=== PATIENT | female | born 1975 | race Caucasian/White ===

== ENCOUNTER → 2017-03-04 | Outpatient (CLI) | payer BC ==
[~2017-03-04] MED LIST: PREN1TAB39
--- NOTE | 2017-03-04 17:29 | Diagnostic Imaging Report ---
INDICATION: Menorrhagia. EXAM: Transabdominal and endovaginal pelvic sonogram. FINDINGS: The uterus measures 8.0 x 4.2 x 4.2 cm. The endometrium measures 8 mm in thickness. The myometrium and endometrium appear normal. There are follicular cysts on the left ovary. The largest is 17 mm in diameter and has internal debris which may be due to a hemorrhagic cyst. The right ovary is obscured by bowel gas. IMPRESSION: Small hemorrhagic cyst, left ovary. Dictated by: Dictated on workstation # [id number]
== END ==
LOC: RAD 16:49
PROVIDERS: ATTEND Nurse Practitioner
DX: N83.202 Unspecified ovarian cyst, left side (principal); N92.0 Excessive and frequent menstruation with regular cycle
CPT/HCPCS: 76830; 76856

== ENCOUNTER 2017-06-06 10:33 | Emergency (ER) | payer BC ==
[~2017-06-06] VITALS: Ht 162.6 cm; Wt 66.2 kg
[~2017-06-06 10:33] MED LIST changes: +DOCU100C37 PO; +HYDR-3816 PO; +IBUP-1773 PO; +SIME80TA16 PO
[2017-06-06] MEDS ORDERED: ONDANSETRON 4 MG/2 ML (SDV) Z0FRAN IVP ONE ×2 (12:00→13:15)
[2017-06-06] MEDS ORDERED: NS IV PRN (12:00)
[2017-06-06] MEDS ORDERED: KETOROLAC 30 MG/ML VIAL IVP STA (12:00)
--- NOTE | 2017-06-06 12:02 | ED GU-Female ---
General Chief Complaint: Fever-Adult/Adol Stated Complaint: FEVER,RASH Nursing Triage Note: pt reports she had hyst by dr bianchi on the 05/27. fever starting 06/02. started on keflex by jose nunez on 06/03. fever persists et rash developing on face et left abd. Nursing Sepsis Screen: No Definite Risk Source: patient, spouse Exam Limitations: no limitations History of Present Illness Time seen by provider: 11:45 Allergies and Home Medications Allergies Coded Allergies: Influenza Virus Vaccines (Verified Allergy, Mild, HIVES, 05/21/17) divalproex sodium (Verified Allergy, Mild, HIVES, 05/21/17) Home Medications Docusate Sodium 100 Mg Capsule, 100 MG PO BID PRN for CONSTIPATION-1ST LINE, #60 Prescribed by: ZAIRA BIANCHI on 05/27/17 1725 Hydrocodone/Acetaminophen 1 Each Tablet, 1-2 EA PO Q6H PRN for PAIN-MODERATE TO SEVERE, #30 Prescribed by: ZAIRA BIANCHI on 05/27/17 1725 Ibuprofen 600 Mg Tablet, 600 MG PO Q6H PRN for PAIN-MILD, #60 Prescribed by: ZAIRA BIANCHI on 05/27/17 1725 Simethicone 80 Mg Tab.chew, 40 MG PO TID PRN for INDIGESTION, #60 Prescribed by: ZAIRA BIANCHI on 05/27/17 1725 Past Laicuzp-Fhtupk-Ggeszq Hx Patient Social History Recent Foreign Travel: No Contact w/Someone Who Travel: No Recent Infectious Disease Expo: No Recent Hopitalizations: No Immunizations Up To Date Tetanus Booster (TDap): Unknown PED Vaccines UTD: No Seasonal Allergies Seasonal Allergies: Yes Respiratory Respiratory Disorders: Asthma Neurological Neurological Disorders: Headaches /Migraines, Seizure Disorder Reproductive System Hx Reproductive Disorders: Yes (MENOMETRORRHAGIA, L ADENEXAL CYST) Sexually Transmitted Disease: No HIV/AIDS: No Female Reproductive Disorders: Menstrual Problems, Ovarian Cyst HEENT Loss of Vision: Bilateral Hearing Impairment: Denies Blood Transfusions Adverse Reaction to a Blood Tr: No Physical Exam Vital Signs Vital Sign - Last 12Hours 06/06/17 10:55 Temp 99.1 Pulse 88 Resp 18 B/P (MAP) 127/69 Capillary Refill : Less Than 3 Seconds Focused Exam Evaluation Lactate Level Laboratory Tests 06/06/17 11:54: Lactic Acid Level 1.11 Lactic Acid Level Laboratory Tests Test 06/06/17 11:54 Lactic Acid Level 1.11 MMOL/L (0.50-2.00) Progress/Results/Core Measures Suspected Sepsis Recent Fever Within 48 Hours: Yes Infection Criteria Present: Suspected New Infection New/Unexplained Altered Menta: No Sepsis Screen: No Definite Risk Sepsis Diagnosis: SIRS Temperature:99.1 Pulse: 88 Respiratory Rate: 18 Laboratory Tests 06/06/17 11:54: White Blood Count 11.2H Blood Pressure 127 /69 Mean: 88 Laboratory Tests 06/06/17 11:54: Lactic Acid Level 1.11 Laboratory Tests 06/06/17 11:54: Creatinine 0.78, INR Comment 1.0, Platelet Count 346, Total Bilirubin 0.4 Results/Orders Lab Results Laboratory Tests Test 06/06/17 11:54 06/06/17 12:00 Range/Units White Blood Count 11.2 H 4.3-11.0 10^3/uL Red Blood Count 4.81 4.35-5.85 10^6/uL Hemoglobin 13.9 11.5-16.0 G/DL Hematocrit 41 35-52 % Mean Corpuscular Volume 86 80-99 FL Mean Corpuscular Hemoglobin 29 25-34 PG Mean Corpuscular Hemoglobin Concent 34 32-36 G/DL Red Cell Distribution Width 11.8 10.0-14.5 % Platelet Count 346 130-400 10^3/uL Mean Platelet Volume 10.3 7.4-10.4 FL Neutrophils (%) (Auto) 67 42-75 % Lymphocytes (%) (Auto) 21 12-44 % Monocytes (%) (Auto) 7 0-12 % Eosinophils (%) (Auto) 4 0-10 % Basophils (%) (Auto) 1 0-10 % Neutrophils # (Auto) 7.6 1.8-7.8 X 10^3 Lymphocytes # (Auto) 2.3 1.0-4.0 X 10^3 Monocytes # (Auto) 0.8 0.0-1.0 X 10^3 Eosinophils # (Auto) 0.5 H 0.0-0.3 10^3/uL Basophils # (Auto) 0.1 0.0-0.1 10^3/uL Prothrombin Time 13.0 12.2-14.7 SEC INR Comment 1.0 0.8-1.4 Activated Partial Thromboplast Time 28 24-35 SEC Sodium Level 139 135-145 MMOL/L Potassium Level 4.4 3.6-5.0 MMOL/L Chloride Level 107 98-107 MMOL/L Carbon Dioxide Level 24 21-32 MMOL/L Anion Gap 8 5-14 MMOL/L Blood Urea Nitrogen 11 7-18 MG/DL Creatinine 0.78 0.60-1.30 MG/DL Estimat Glomerular Filtration Rate > 60 BUN/Creatinine Ratio 14 Glucose Level 83 70-105 MG/DL Lactic Acid Level 1.11 0.50-2.00 MMOL/L Calcium Level 9.3 8.5-10.1 MG/DL Total Bilirubin 0.4 0.1-1.0 MG/DL Aspartate Amino Transf (AST/SGOT) 26 5-34 U/L Alanine Aminotransferase (ALT/SGPT) 64 H 0-55 U/L Alkaline Phosphatase 67 40-136 U/L Total Protein 7.5 6.4-8.2 GM/DL Albumin 4.1 3.2-4.5 GM/DL Urine Color YELLOW Urine Clarity SLIGHTLY CLOUDY Urine pH 6.5 5-9 Urine Specific Marshall 1.010 L 1.016-1.022 Urine Protein NEGATIVE NEGATIVE Urine Glucose (UA) NEGATIVE NEGATIVE Urine Ketones NEGATIVE NEGATIVE Urine Nitrite NEGATIVE NEGATIVE Urine Bilirubin NEGATIVE NEGATIVE Urine Urobilinogen NORMAL NORMAL MG/DL Urine Leukocyte Esterase 2+ H NEGATIVE Urine RBC (Auto) 2+ H NEGATIVE Urine RBC RARE /HPF Urine WBC 2-5 /HPF Urine Squamous Epithelial Cells TNTC H /HPF Urine Renal Epithelial Cells NONE /HPF Urine Crystals NONE /LPF Urine Bacteria FEW H /HPF Urine Casts NONE /LPF Urine Mucus NEGATIVE /LPF Urine Culture Indicated NO My Orders Orders - JAMA SALOMON PA Cbc With Automated Diff (06/06/17 11:46) Comprehensive Metabolic Panel (06/06/17 11:46) Lactic Acid Analyzer (06/06/17 11:46) Blood Culture (06/06/17 11:46) Ua Culture If Indicated (06/06/17 11:46) Protime With Inr (06/06/17 11:46) Partial Thromboplastin Time (06/06/17 11:46) Chest 1 View, Ap/Pa Only (06/06/17 11:46) Saline Lock/Iv-Start (06/06/17 11:46) Vital Signs Adult Sepsis Patie Q1H (06/06/17 11:46) Remove Rings In Anticipation O (06/06/17 11:46) Ct Abdomen/Pelvis W (06/06/17 12:00) Ondansetron Injection (Zofran Injectio (06/06/17 12:00) Ketorolac Injection (Toradol Injection) (06/06/17 12:00) Ns Iv 1000 Ml (Sodium Chloride 0.9%) (06/06/17 12:00) Ns Iv 1000 Ml (Sodium Chloride 0.9%) (06/06/17 12:05) Iohexol Injection (Omnipaque 350 Mg/Ml 1 (06/06/17 12:15) Sodium Chloride Flush (Catheter Flush Sy (06/06/17 12:15) Ns (Ivpb) (Sodium Chloride 0.9% Ivpb Bag (06/06/17 12:15) Pharmacy Communication (Pharmacy Communi (06/06/17 12:07) Zofran Iv (06/06/17 13:15) Pepcid 20 Mg Iv (06/06/17 13:10) Solu-Medrol 125 Mg Iv (06/06/17 13:10) Medications Given in ED Current Medications Medications Dose Ordered Sig/Marilu Route Start Time Stop Time Status Last Admin Dose Admin Iohexol 100 ml ONCE ONCE IV 06/06/17 12:15 06/06/17 12:16 DC 06/06/17 12:28 100 ML Ondansetron HCl 4 mg ONCE ONCE IVP 06/06/17 12:00 06/06/17 12:02 DC 06/06/17 12:08 4 MG Sodium Chloride 10 ml NEEDED PRN IV 06/06/17 12:15 06/06/17 12:29 10 ML Sodium Chloride 100 ml ONCE ONCE IV 06/06/17 12:15 06/06/17 12:16 DC 06/06/17 12:28 80 ML Sodium Chloride 1,000 ml @ 0 mls/hr Q0M ONCE IV 06/06/17 12:05 06/06/17 12:07 DC 06/06/17 12:13 1,000 MLS/HR Vital Signs/I&O Vital Sign - Last 12Hours 06/06/17 10:55 Temp 99.1 Pulse 88 Resp 18 B/P (MAP) 127/69 Capillary Refill : Less Than 3 Seconds Blood Pressure Mean: 88 Departure Communication (Admissions) Progress Notes [address] milian Impression Impression: Primary Impression: Nausea & vomiting Additional Impressions: S/P hysterectomy Ovarian cyst Disposition: 01 HOME, SELF-CARE Departure-Patient Inst. Decision time for Depature: 13:13 Referrals: SAVANNAH MENARD MD (PCP) Primary Care Physician MART VELAZQUEZ (Family) Primary Care Physician ZAIRA BIANCHI DO Add. Discharge Instructions: All discharge instructions reviewed with patient and/or family. Voiced understanding. Medications as instructed. Continue usual home medications. Ibuprofen 800 mg by mouth every 8 hours as needed for pain or fever. Tylenol extra strength [id number] as directed for pain or fever. Push fluids. Follow-up with Dr. Bianchi on Friday as previously scheduled. Return to the emergency department for worsened symptoms or any other concerns. Scripts Prednisone (Prednisone) 20 Mg Tab 40 MG PO DAILY, #10 TAB 0 Refills Prov: JAMA SALOMON 06/06/17 Famotidine (Pepcid) 20 Mg Tablet 20 MG PO BID, #14 TAB 0 Refills Prov: JAMA SALOMON 06/06/17 Ondansetron (Ondansetron Odt) 8 Mg Tab.rapdis 8 MG PO Q6H Y for NAUSEA/VOMITING-1ST LINE, #10 TAB 0 Refills Prov: JAMA SALOMON 06/06/17 JAMA SALOMON Jun 06, 2017 12:02
[2017-06-06] MEDS ORDERED: NS IV 1000 ML 1,000 ML IV ONE (12:05)
[2017-06-06 12:12] LABS: BASOPHILS # (AUTO) 0.1 10^3/uL (0.0-0.1); BASOPHILS % (AUTO) 1 % (0-10); EOSINOPHILS # (AUTO) 0.5 10^3/uL (0.0-0.3); EOSINOPHILS % (AUTO) 4 % (0-10); LYMPHOCYTES # (AUTO) 2.3 X 10^3 (1.0-4.0); LYMPHOCYTES % (AUTO) 21 % (12-44); MEAN CORPUSCULAR HEMOGLOBIN 29 PG (25-34); MEAN CORPUSCULAR HGB CONC 34 G/DL (32-36); MEAN CORPUSCULAR VOLUME 86 FL (80-99); MEAN PLATELET VOLUME 10.3 FL (7.4-10.4); MONOCYTES # (AUTO) 0.8 X 10^3 (0.0-1.0); MONOCYTES % (AUTO) 7 % (0-12); NEUTROPHILS # (AUTO) 7.6 X 10^3 (1.8-7.8); NEUTROPHILS % (AUTO) 67 % (42-75); PLATELET COUNT 346 10^3/uL (130-400); RED BLOOD COUNT 4.81 10^6/uL (4.35-5.85); RED CELL DISTRIBUTION WIDTH 11.8 % (10.0-14.5); WHITE BLOOD COUNT 11.2 10^3/uL (4.3-11.0)
[2017-06-06] MEDS ORDERED: CATHETER FLUSH 10 ML SYR IV PRN (12:15)
[2017-06-06] MEDS ORDERED: IOHEXOL 350 MG/ML 100 ML (OMNIPAQUE 350) VIAL IV ONE (12:15)
[2017-06-06] MEDS ORDERED: NS 100 ML (IVPB) BAG IV ONE (12:15)
--- NOTE | 2017-06-06 12:15 | Diagnostic Imaging Report ---
INDICATION: Post hysterectomy, fever and rash. Portable chest 1155 hours. FINDINGS: Heart size and pulmonary vascularity are normal. Lungs are clear. There are no effusions or pneumothoraces. IMPRESSION: Negative chest. Dictated by: Dictated on workstation # [id number]
[2017-06-06 12:36] LABS: ALANINE AMINOTRANSFERASE 64 U/L (0-55); ALBUMIN 4.1 GM/DL (3.2-4.5); ANION GAP 8 MMOL/L (5-14); ASPARTATE AMINO TRANSFERASE 26 U/L (5-34); BILIRUBIN,TOTAL 0.4 MG/DL (0.1-1.0); BLOOD UREA NITROGEN 11 MG/DL (7-18); BUN/CREATININE RATIO 14; CALCIUM 9.3 MG/DL (8.5-10.1); CARBON DIOXIDE 24 MMOL/L (21-32); CHLORIDE 107 MMOL/L (98-107); CREATININE SERUM 0.78 MG/DL (0.60-1.30); GFR ESTIMATED > 60; GLUCOSE 83 MG/DL (70-105); POTASSIUM 4.4 MMOL/L (3.6-5.0); SODIUM 139 MMOL/L (135-145); TOTAL PROTEIN 7.5 GM/DL (6.4-8.2)
--- NOTE | 2017-06-06 12:41 | Diagnostic Imaging Report ---
PROCEDURE: CT abdomen and pelvis with contrast. TECHNIQUE: Multiple contiguous axial images were obtained through the abdomen and pelvis after administration of intravenous contrast. INDICATION: Postoperative fever and pelvic pain. FINDINGS: Lung bases are clear. Liver appears normal. Gallbladder is present. Pancreas is normal. Spleen is not enlarged. Adrenals are normal. Kidneys appear normal. The uterus is surgically absent. There are 2 cysts on the left ovary. Each of these measures 2 cm in diameter. The urinary bladder appears normal. There is a trace amount of free fluid in the cul-de-sac. There is a moderate amount of stool in the colon. The appendix is normal. IMPRESSION: Postsurgical changes in the abdomen. There is no intraperitoneal free air. There is a trace amount of intraperitoneal free fluid in the cul-de-sac. There are 2 cysts on the left ovary. There is no acute abnormality seen. Dictated by: Dictated on workstation # [id number]
[2017-06-06 12:43] LABS: BILIRUBIN,URINE NEGATIVE (NEGATIVE); KETONES,URINE NEGATIVE (NEGATIVE); LEUKOCYTE ESTERASE ,URINE 2+ (NEGATIVE); NITRITE,URINE NEGATIVE (NEGATIVE); PH,URINE 6.5 (5-9); PROTEIN,URINE NEGATIVE (NEGATIVE); UROBILINOGEN,URINE NORMAL (NORMAL)
[2017-06-06 12:44] LABS: SQUAMOUS EPITHELIAL CELL,UR TNTC /HPF
[2017-06-06] MEDS ORDERED: methylPREDNISolone 125 MG (Solu-MEDROL) VIAL IV STA (13:10)
[2017-06-06] MEDS ORDERED: FAMOTIDINE 20MG/2ML IV (PEPCID) IV STA (13:10)
[2017-06-06] MEDS ORDERED: FAMO-119 PO (13:14)
[2017-06-06] MEDS ORDERED: ONDA8TAB13 PO (13:14)
[2017-06-06] MEDS ORDERED: PRD20T PO (13:14)
[2017-06-06 14:13] VITALS: BP 127/69
== END 2017-06-06 14:13 | disposition home or self-care (01) ==
LOC: EDUNIT# 10:33 → ER 10:34
DX: R11.2 Nausea with vomiting, unspecified (principal); N83.202 Unspecified ovarian cyst, left side; G43.909 Migraine, unspecified, not intractable, without status migrainosus; G40.909 Epilepsy, unspecified, not intractable, without status epilepticus; J45.909 Unspecified asthma, uncomplicated; Z90.710 Acquired absence of both cervix and uterus
CPT/HCPCS: 36415; 71010; 74177; 80053; 81000; 83605; 85025; 85610; 85730; 87040

== ENCOUNTER → 2017-06-16 | Outpatient (CLI) | payer BC ==
[~2017-06-16] MED LIST changes: +FAMO-119 PO; +ONDA8TAB13 PO; +PRD20T PO
[2017-06-16 09:15] LABS: BASOPHILS # (AUTO) 0.1 10^3/uL (0.0-0.1); BASOPHILS % (AUTO) 1 % (0-10); EOSINOPHILS # (AUTO) 0.6 10^3/uL (0.0-0.3); EOSINOPHILS % (AUTO) 7 % (0-10); LYMPHOCYTES # (AUTO) 2.4 X 10^3 (1.0-4.0); LYMPHOCYTES % (AUTO) 31 % (12-44); MEAN CORPUSCULAR HEMOGLOBIN 29 PG (25-34); MEAN CORPUSCULAR HGB CONC 34 G/DL (32-36); MEAN CORPUSCULAR VOLUME 87 FL (80-99); MEAN PLATELET VOLUME 9.9 FL (7.4-10.4); MONOCYTES # (AUTO) 0.5 X 10^3 (0.0-1.0); MONOCYTES % (AUTO) 7 % (0-12); NEUTROPHILS # (AUTO) 4.3 X 10^3 (1.8-7.8); NEUTROPHILS % (AUTO) 55 % (42-75); PLATELET COUNT 329 10^3/uL (130-400); RED CELL DISTRIBUTION WIDTH 11.9 % (10.0-14.5); WHITE BLOOD COUNT 7.8 10^3/uL (4.3-11.0)
[2017-06-16 09:21] LABS: BILIRUBIN,URINE NEGATIVE (NEGATIVE); KETONES,URINE NEGATIVE (NEGATIVE); LEUKOCYTE ESTERASE ,URINE 2+ (NEGATIVE); NITRITE,URINE NEGATIVE (NEGATIVE); PH,URINE 7 (5-9); PROTEIN,URINE NEGATIVE (NEGATIVE); UROBILINOGEN,URINE NORMAL (NORMAL)
[2017-06-16 09:37] LABS: ALANINE AMINOTRANSFERASE 24 U/L (0-55); ALBUMIN 4.3 GM/DL (3.2-4.5); ANION GAP 7 MMOL/L (5-14); ASPARTATE AMINO TRANSFERASE 16 U/L (5-34); BILIRUBIN,TOTAL 0.7 MG/DL (0.1-1.0); BLOOD UREA NITROGEN 11 MG/DL (7-18); BUN/CREATININE RATIO 13; CALCIUM 9.1 MG/DL (8.5-10.1); CARBON DIOXIDE 24 MMOL/L (21-32); CHLORIDE 108 MMOL/L (98-107); CREATININE SERUM 0.83 MG/DL (0.60-1.30); GFR ESTIMATED > 60; GLUCOSE 98 MG/DL (70-105); LIPASE 35 U/L (8-78); POTASSIUM 4.2 MMOL/L (3.6-5.0); SODIUM 139 MMOL/L (135-145); TOTAL PROTEIN 7.6 GM/DL (6.4-8.2); hs C REACTIVE PROTEIN 0.08 MG/DL (0.00-0.50)
== END ==
LOC: LAB 08:54
PROVIDERS: ATTEND Emergency Medicine
DX: R50.9 Fever, unspecified (principal); R53.83 Other fatigue
CPT/HCPCS: 36415; 80053; 81000; 83690; 84443; 85025; 85379; 86141; 86308; 87088

== ENCOUNTER → 2017-06-16 | Outpatient (CLI) | payer BC ==
[~2017-06-16] MED LIST changes: +CATHETER FLUSH 10 ML SYR IV PRN; +IOHEXOL 350 MG/ML 150 ML (OMNIPAQUE 350) VIAL IV ONE; +NS 100 ML (IVPB) BAG IV ONE
--- NOTE | 2017-06-16 13:57 | Diagnostic Imaging Report ---
PROCEDURE: CT angiography of the chest with contrast. TECHNIQUE: Multiple contiguous axial images were obtained through the chest after uneventful bolus administration of intravenous contrast. Reconstructed CTA MIP acquisitions were also performed. INDICATION: Shortness of breath. Fever. 125 mL of Omnipaque 350 is administered intravenously. FINDINGS: There is good opacification of the pulmonary arteries with no filling defects to suggest pulmonary embolism. The thoracic aorta is normal in caliber. No dissection or aneurysm. The heart size is normal. No pericardial or pleural effusion. There is no mediastinal, hilar or axillary lymphadenopathy seen. The lungs demonstrate no significant consolidation, mass or suspicious nodule. The osseous structures appear grossly unremarkable. Sections in the upper abdomen appear grossly unremarkable. IMPRESSION: Unremarkable exam. Dictated by: Dictated on workstation # [id number]
== END ==
LOC: RAD 12:44
PROVIDERS: ATTEND Physician Assistant
DX: R06.02 Shortness of breath (principal); R50.9 Fever, unspecified; R79.1 Abnormal coagulation profile
CPT/HCPCS: 71275